=== PATIENT | female | born 1955 | race Caucasian/White ===

== ENCOUNTER 2017-09-29 18:03 | Emergency (ER) | payer OTHER ==
[~2017-09-29] VITALS: Ht 162.6 cm; Wt 65.9 kg
[2017-09-29] MEDS ORDERED: SODIUM CHLORIDE FLUSH 10ML SYR IVF ONE (19:00)
[2017-09-29] MEDS ORDERED: LEVO25TA4 PO (19:25)
[2017-09-29] MEDS ORDERED: FLUT9.9S NS (19:25)
[2017-09-29] MEDS ORDERED: MONT4GRA PO (19:25)
[2017-09-29] MEDS ORDERED: ATOR-2 PO (19:25)
[2017-09-29] MEDS ORDERED: GABA300C10 PO (19:25)
[2017-09-29] MEDS ORDERED: ONDANSETRON 2MG/ML, 2ML ONE (19:36)
[2017-09-29] MEDS ORDERED: MORPHINE SULFATE 4 MG/ML, 1ML ONE (19:36)
[2017-09-29] MEDS ORDERED: ONDANSETRON 2MG/ML, 2ML IVPush ONE (20:00)
[2017-09-29] MEDS ORDERED: MORPHINE SULFATE 4 MG/ML, 1ML IVPush PRN (20:00)
[2017-09-29] MEDS ORDERED: SODIUM CHLORIDE 0.9% 1,000ML IVBOLUS ONE (20:00)
[2017-09-29 20:35] LABS: HEMATOCRIT 41.4 % (34.6-47.8); HEMOGLOBIN 13.8 g/dL (11.7-16.4); WHITE BLOOD COUNT 7.7 x10^3/uL (3.4-10)
[2017-09-29 20:53] LABS: BLOOD UREA NITROGEN 8 mg/dL (7-18)
[2017-09-29 20:57] LABS: ASPARTATE AMINO TRANSFERASE 11 U/L (15-37)
[2017-09-29] MEDS ORDERED: KETOROLAC 30 MG/1 ML IVPush ONE (21:00)
[2017-09-29] MEDS ORDERED: KETOROLAC 30 MG/1 ML ONE (21:03)
[2017-09-29 21:40] VITALS: BP 125/50
== END 2017-09-29 22:02 | disposition home or self-care (01) ==
LOC: ED 21:04
DX: M13.151 Monoarthritis, not elsewhere classified, right hip (principal)
CPT/HCPCS: 36415; 72110; 72192; 73502; 80053; 81003; 84550; 85025; 96361; 96374; 96375; 99285; J1885; J2405; J7030

== ENCOUNTER → 2017-11-15 | Outpatient (CLI) | payer OTHER ==
[~2017-11-15] MED LIST: ATOR-2 PO; FLUT9.9S NS; GABA300C10 PO; LEVO25TA4 PO; LIDOCAINE 1%, 20ML ONE; MONT4GRA PO; MULTIHANCE 529 MG/ML, 5ML IV ONE; OMNIPAQUE 300 MG/ML, 10ML VIAL ONE; ROPIvacaine/PF 0.2%, 20 ML ONE
== END | disposition home or self-care (01) ==
LOC: CFH 07:52
PROVIDERS: ATTEND Orthopaedic Surgery
DX: M25.551 Pain in right hip (principal); R59.0 Localized enlarged lymph nodes; R10.2 Pelvic and perineal pain
CPT/HCPCS: 73525; 73722; 82565; A9577; J2795; J3490; Q9967

== ENCOUNTER → 2018-08-15 | Outpatient (CLI) | payer MEDICARE ==
[~2018-08-15] MED LIST changes: -LIDOCAINE 1%, 20ML ONE; -MULTIHANCE 529 MG/ML, 5ML IV ONE; -OMNIPAQUE 300 MG/ML, 10ML VIAL ONE; -ROPIvacaine/PF 0.2%, 20 ML ONE
== END | disposition home or self-care (01) ==
LOC: CFH 11:57
PROVIDERS: ATTEND Genetic Counselor, MS
DX: Z12.31 Encounter for screening mammogram for malignant neoplasm of breast (principal); Z13.820 Encounter for screening for osteoporosis; Z78.0 Asymptomatic menopausal state
CPT/HCPCS: 77080; 77067